=== PATIENT | female | born 1935 | race Caucasian/White ===

== ENCOUNTER 2017-05-01 19:43 | Emergency (ER) | payer SELFPAY ==
[~2017-05-01] VITALS: Ht 154.9 cm; Wt 63.6 kg
[2017-05-01 19:58] VITALS: BP 0/0
== END 2017-05-01 23:01 | disposition expired ==
LOC: EDBD 19:46 → EMS 19:46
DX: I46.9 Cardiac arrest, cause unspecified (principal)
CPT/HCPCS: 92950; 99291